=== PATIENT | female | born 1950 | race Asian ===

== ENCOUNTER 2024-12-25 11:35 | Emergency (ER) | payer OTHER, MEDICARE ==
[~2024-12-25] VITALS: Ht 165.1 cm; Wt 65.9 kg
[2024-12-25 12:09] VITALS: TEMP 98
[2024-12-25] MEDS ORDERED: LEVE500V8 IV (12:22)
[2024-12-25] MEDS ORDERED: MORP2CAR IM (12:22)
[2024-12-25] MEDS ORDERED: HALO2ORA3 PO (12:22)
[2024-12-25] MEDS ORDERED: LORA0.5T20 PO (12:22)
[2024-12-25] MEDS ORDERED: HYOS-28 PO (12:22)
[2024-12-25] MEDS ORDERED: CARB1TAB36 PO (12:24)
[2024-12-25] MEDS ORDERED: LEVO75 PO (12:24)
[2024-12-25] MEDS ORDERED: MIDO2.5T19 PO (12:24)
[2024-12-25 12:38] LABS: COVID AG,FIA SOURCE NASAL SWAB
[2024-12-25 12:38] LABS: PLATELET COUNT (AUTO) 135 K/uL (150-450); RED BLOOD CELL COUNT(AUTO) 3.32 MIL/uL (4.00-5.20); RED CELL DISTRIBUTION WIDTH 14.2 % (11.5-14.5); WHITE BLOOD COUNT (AUTO) 5.0 K/uL (4.5-11.0)
[2024-12-25 12:48] LABS: CALCIUM, TOTAL 8.0 mg/dL (8.8-10.5); CREATININE 0.49 mg/dL (0.60-1.30); GLOMERULAR FILTR. RATE CALC > 60 mL/min (>60); GLUCOSE,RANDOM 77 mg/dL (70-110); SODIUM SERUM 136 mmol/L (136-145); UREA NITROGEN, BLOOD 6 mg/dL (7-18)
[2024-12-25 12:53] LABS: ASPARTATE AMINOTRANSFERASE 20 U/L (15-37); CREATINE KINASE, TOTAL ONLY 116 U/L (26-192); TOTAL PROTEIN, SERUM 5.5 g/dL (6.4-8.2)
[2024-12-25 13:07] LABS: ALCOHOL, BLOOD (SERUM) < 3 mg/dL (0-10)
[2024-12-25 13:08] LABS: SARS-COV2 (COVID) ANTIGEN,FIA Negative (Negative)
[2024-12-25] MEDS: LevETIRAcetam 1,000 MG in DEXTROSE 5%-WATER 100 ML IV ONE (14:31)
[2024-12-25 14:51] LABS: TROPONIN I-HIGH SENSITIVITY 962 ng/L (<51)
[2024-12-25 17:58] VITALS: BP 105/53; PULSE 62; RESP 14; O2SAT 100
== END 2024-12-25 18:15 | disposition short-term general hospital (02) ==
LOC: EMS 11:36
DX: G40.909 Epilepsy, unspecified, not intractable, without status epilepticus (principal); F03.90 Unspecified dementia, unspecified severity, without behavioral disturbance, psychotic disturbance, mood disturbance, and anxiety; Z51.5 Encounter for palliative care; Z79.899 Other long term (current) drug therapy; Z20.822 Contact with and (suspected) exposure to COVID-19
CPT/HCPCS: 99285; 96374; 70450; 71045; 87426; 80053; 82550; 84484; 85025; 36415; 93005; J0712; G0480; J7060